=== PATIENT | male | born 1945 | race Caucasian/White ===

== ENCOUNTER → 2024-11-30 07:20 | Outpatient (CLI) | payer MEDICARE, OTHER, SELFPAY ==
--- NOTE | 2024-11-30 07:23 | DI.MRI.S_ITS ---
PROCEDURE: MR SHOULDER LT WO CON INDICATIONS: r/o RTC tear TECHNIQUE: Noncontrast oblique coronal T2 fast spin echo with fat saturation, oblique sagittal T1 spin echo and T2 fast spin echo with fat saturation, axial T1 spin echo and T2 fast spin echo with fat saturation through the shoulder. COMPARISON: [facility], CR, XR SHOULDER 2+ VIEWS LEFT, 04/02/2024, 14:32. FINDINGS: Image quality: Excellent. Rotator cuff: In the supraspinatus, there is full-thickness, near full width tear at the footprint, without tendon retraction. Multiple small area T1 and T2 hypointensity at the supraspinatus about the footprint, likely representing calcification in the setting of hydroxyapatite deposition disease. The infraspinatus is unremarkable. The teres minor, and the subscapularis are unremarkable. No muscle edema or fatty atrophy. Bones and bursae: Mild degenerative change of the acromioclavicular joint. Type 1 acromion. No os acromiale. Mild subacromial/subdeltoid bursitis. Moderate subchondral marrow edema at the anterior greater tuberosity, reactive. No acute fracture. No focal chondral defect of the glenohumeral articulation. Capsule and soft tissues: Superior labral tear, extending anteriorly to the anterior superior labrum. Mild tenosynovitis of the extra-articular biceps tendon. Mild tendinosis of the distal intra-articular biceps tendon. No significant glenohumeral effusion. No intra-articular body. IMPRESSION: 1. Moderate subchondral marrow edema at the anterior greater tuberosity, reactive. 2. Full-thickness, near full width tear of the supraspinatus, without tendon retraction. Hydroxyapatite deposition disease of the supraspinatus. 3. Labral tear. Dictated by: Crissy Chicas M.D. on 11/30/2024 at 17:11 Approved by: Crissy Chicas M.D. on 11/30/2024 at 17:19
== END ==
LOC: MRI 07:22
PROVIDERS: PCP Family Medicine; Referring Provider Family Medicine; Visit Provider Orthopaedic Surgery
DX: M75.122 Complete rotator cuff tear or rupture of left shoulder, not specified as traumatic (principal); S43.492A Other sprain of left shoulder joint, initial encounter; M11.012 Hydroxyapatite deposition disease, left shoulder; M25.512 Pain in left shoulder
CPT/HCPCS: 73221